=== PATIENT | male | born 1965 | race Caucasian/White ===

== ENCOUNTER 2018-05-30 13:45 | Emergency (ER) | payer OTHER ==
[2018-05-30 14:32] LABS: BILIRUBIN,URINE NEGATIVE (NEGATIVE); GLUCOSE, URINE (UA) NEGATIVE (NEGATIVE); KETONES,URINE (UA) NEGATIVE (NEGATIVE); LEUKOCYTE ESTERASE, URINE NEGATIVE (NEGATIVE); NITRITE,URINE NEGATIVE (NEGATIVE); OCCULT BLOOD,URINE NEGATIVE (NEGATIVE); PROTEIN,URINE NEGATIVE (NEGATIVE); UROBILINOGEN,URINE 0.2 (NORMAL) E.U./dL (NORMAL)
[2018-05-30 14:33] LABS: CLARITY,URINE CLEAR (CLEAR)
[2018-05-30 14:36] LABS: EOSINOPHILS % (AUTO) 0.1 %; HGB - HEMOGLOBIN 13.5 g/dL (14.0-18.0); LYMPHOCYTES # (AUTO) 1.3 10^3/uL (1.5-3.5); LYMPHOCYTES % (AUTO) 34.5 %; MEAN CORPUSCULAR HEMOGLOBIN 33.1 pg (27.0-31.0); MEAN CORPUSCULAR HGB CONC 34.3 g/dL (32.0-36.0); MEAN CORPUSCULAR VOLUME 96.4 fL (80.0-94.0); MEAN PLATELET VOLUME 6.8 fL (7.4-11.4); MONOCYTES # (AUTO) 0.6 10^3/uL (0.0-1.0); MONOCYTES % (AUTO) 15.1 %; NEUTROPHILS # (AUTO) 1.9 10^3/uL (1.5-6.6); NEUTROPHILS % (AUTO) 49.3 %; PLT - PLATELET COUNT 119 10^3/uL (130-450); RED BLOOD COUNT 4.09 10^6/uL (4.70-6.10); RED CELL DISTRIBUTION WIDTH 14.1 % (12.0-15.0); WHITE BLOOD COUNT 3.8 x10^3/uL (4.8-10.8)
--- NOTE | 2018-05-30 14:49 | ED Physician Documentation ---
History of Present Illness - Stated complaint Stated Complaint: BLOOD IN URINE - Chief complaint Chief Complaint: Abd Pain - History obtained from History obtained from: Patient, Friend - History of Present Illness Timing: How many weeks ago (1) - Additonal information Additional information: 52-year-old alcoholic male who over the past week has developed abdominal pain and vomiting has developed dark colored urine he went into see his doctor today and was found to have elevated liver functions and was asked to come to the hospital for evaluation. Review of Systems Constitutional: reports: Myalgias, Fatigue. denies: Fever Eyes: denies: Decreased vision Ears: denies: Ear pain Nose: denies: Rhinorrhea / runny nose, Congestion, Foreign Body Throat: denies: Sore throat Cardiac: denies: Chest pain / pressure, Palpitations, Pedal edema, Calf pain Respiratory: denies: Dyspnea, Cough GI: reports: Abdominal Pain, Nausea, Vomiting : reports: Hematuria. denies: Dysuria, Frequency Skin: denies: Rash Musculoskeletal: denies: Neck pain, Back pain, Extremity pain PD PAST MEDICAL HISTORY - Past Medical History Cardiovascular: Hypertension Endocrine/Autoimmune: Type 2 diabetes - Past Surgical History Past Surgical History: No - Present Medications Home Medications: Ambulatory Orders Medication Instructions Recorded Confirmed Lisinopril/Hydrochlorothiazide 1 tab 06/05/15 [Lisinopril-Hctz 20-25 mg Tab] Lorazepam [Ativan] 1 - 2 mg PO Q6HR PRN #20 tablet 06/05/15 Ondansetron Odt [Zofran] 4 mg TL Q6H PRN #10 tablet 06/05/15 LORazepam [Ativan] 1 - 2 mg PO Q6HR PRN #30 tablet 05/30/18 - Allergies Allergies/Adverse Reactions: Allergies Allergy/AdvReac Type Severity Reaction Status Date / Time No Known Drug Allergies Allergy Verified 05/30/18 14:08 - Social History Does the pt smoke?: No Smoking Status: Never smoker Does the pt drink ETOH?: Yes Does the pt have substance abuse?: No - Immunizations Immunizations are current?: Yes PD ED PE NORMAL - Vitals Vital signs reviewed: Yes (tachy and hypertensive) - General General: Alert and oriented X 3, Well developed/nourished, Other (Seems a little shaky and has scleral ictarus) - HEENT HEENT: Atraumatic, PERRL, EOMI - Neck Neck: Supple, no meningeal sign - Cardiac Cardiac: No murmur, Other (tachy to 120) - Respiratory Respiratory: No respiratory distress, Clear bilaterally - Abdomen Abdomen: Soft, Non tender, No organomegaly - Back Back: No CVA TTP, No spinal TTP - Derm Derm: Normal color, Warm and dry, No rash - Extremities Extremities: No deformity, No edema - Neuro Neuro: Alert and oriented X 3, 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, No motor deficit, No sensory de ficit, Normal speech Eye Opening: Spontaneous Motor: Obeys Commands Verbal: Oriented GCS Score: 15 - Psych Psych: Normal mood, Normal affect Results - Vitals Vitals: Vital Signs - 24 hr 05/30/18 05/30/18 14:05 16:40 Temperature 36.9 C Heart Rate 122 H 97 Respiratory 20 18 Rate Blood Pressure 138/99 H 130/90 H O2 Saturation 96 98 Oxygen O2 Source Room air - Labs Labs: Laboratory Tests 05/30/18 05/30/18 05/30/18 14:15 14:25 14:25 WBC 3.8 L RBC 4.09 L Hgb 13.5 L Hct 39.4 L MCV 96.4 H MCH 33.1 H MCHC 34.3 RDW 14.1 Plt Count 119 L MPV 6.8 L Neut # (Auto) 1.9 Lymph # (Auto) 1.3 L [place] # (Auto) 0.6 Eos # (Auto) 0.0 Baso # (Auto) 0.0 Absolute Nucleated RBC 0.00 Nucleated RBC % 0.0 Sodium 138 Potassium 3.5 Chloride 95 L Carbon Dioxide 27 Anion Gap 16.0 H BUN 5 L Creatinine 0.9 Estimated GFR (MDRD) 89 Glucose 137 H Calcium 9.1 Total Bilirubin 2.1 H AST 586 H ALT 284 H Alkaline Phosphatase 92 Total Protein 7.8 Albumin 4.5 Globulin 3.3 Albumin/Globulin Ratio 1.4 Lipase 94 H Urine Color YELLOW Urine Clarity CLEAR Urine pH 7.0 Ur Specific [place] <=1.005 Urine Protein NEGATIVE Urine Glucose (UA) NEGATIVE Urine Ketones NEGATIVE Urine Occult Blood NEGATIVE Urine Nitrite NEGATIVE Urine Bilirubin NEGATIVE Urine Urobilinogen 0.2 (NORMAL) Ur Leukocyte Esterase NEGATIVE Ur Microscopic Review NOT INDICATED Urine Culture Comments NOT INDICATED Ethyl Alcohol 05/30/18 14:25 WBC RBC Hgb Hct MCV MCH MCHC RDW Plt Count MPV Neut # (Auto) Lymph # (Auto) [place] # (Auto) Eos # (Auto) Baso # (Auto) Absolute Nucleated RBC Nucleated RBC % Sodium Potassium Chloride Carbon Dioxide Anion Gap BUN Creatinine Estimated GFR (MDRD) Glucose Calcium Total Bilirubin AST ALT Alkaline Phosphatase Total Protein Albumin Globulin Albumin/Globulin Ratio Lipase Urine Color Urine Clarity Urine pH Ur Specific [place] Urine Protein Urine Glucose (UA) Urine Ketones Urine Occult Blood Urine Nitrite Urine Bilirubin Urine Urobilinogen Ur Leukocyte Esterase Ur Microscopic Review Urine Culture Comments Ethyl Alcohol 353.9 Procedures - IVC sono (time) 1445 Bedside IVC sono: IVC measures (cm) (1.48), Euvolemia PD MEDICAL DECISION MAKING - ED course Complexity details: reviewed old records, reviewed results, re-evaluated patient, considered differential, d/w patient, d/w family ED course: 52-year-old alcoholic male with vomiting and abdominal pain is administered IV banana bag. He is euvolemic on interrogation the inferior vena cava. His blood work is reviewed and he has acute alcholic hepatitis with only mild elevation of the bili. He has ETOH of 353. He will need some help getting off of alcohol and the licensed clinical social worker is consulted in the case and is able offer resources. The patient is administered IV ativan. Departure - Departure Disposition: 01 Home, Self Care Clinical Impression: Elevated liver enzymes Alcohol intoxication Qualifiers: Complication of substance-induced condition: uncomplicated Qualified Code(s): F10.920 - Alcohol use, unspecified with intoxication, uncomplicated Condition: Stable Instructions: ED Withdrawal Alcohol, ED Cirrhosis Liver, ED Alcohol Intoxication Follow-Up: GREGORIO DYER MD [Primary Care Provider] - Prescriptions: LORazepam [Ativan] 1 - 2 mg PO Q6HR PRN #30 tablet PRN Reason: withdrawal symptoms
[2018-05-30] MEDS ORDERED: FOLIC ACID INJ 1 MG, THIAMINE INJ 100 MG, MAGNESIUM SULFATE 2 GM, MULTIVITAMIN 10 ML in... IV STA ×5 (14:50)
[2018-05-30 14:52] LABS: ALBUMIN 4.5 g/dL (3.2-5.5); ALBUMIN/GLOBULIN RATIO 1.4 (1.0-2.2); BILIRUBIN,TOTAL 2.1 mg/dL (0.2-1.0); CALCIUM 9.1 mg/dL (8.5-10.3); CREATININE 0.9 mg/dL (0.6-1.2); TOTAL PROTEIN 7.8 g/dL (6.7-8.2)
[2018-05-30 16:40] VITALS: BP 130/90
[2018-05-30] MEDS ORDERED: LORazepam 2 MG/ML VIAL IVP STA (16:40)
== END 2018-05-30 17:47 | disposition home or self-care (01) ==
LOC: ED 13:45
DX: R79.89 Other specified abnormal findings of blood chemistry (principal); K70.10 Alcoholic hepatitis without ascites; F10.129 Alcohol abuse with intoxication, unspecified; Y90.8 Blood alcohol level of 240 mg/100 ml or more; I10 Essential (primary) hypertension; E11.9 Type 2 diabetes mellitus without complications
CPT/HCPCS: 36415; 80053; 80320; 81003; 83690; 85025; 96374; 96375; 99283; J2060; J3411; 81001; 87086

== ENCOUNTER 2018-11-30 09:14 | Emergency (ER) | payer OTHER ==
[2018-11-30 09:39] VITALS: BP 129/96
== END 2018-11-30 10:26 | disposition left against medical advice (07) ==
LOC: ED 09:14
DX: Z53.21 Procedure and treatment not carried out due to patient leaving prior to being seen by health care provider (principal)
CPT/HCPCS: 93005

== ENCOUNTER 2019-07-12 15:04 | Outpatient (CLI) | payer OTHER | END 2019-07-12 15:05 | disposition critical access hospital (66) | LOC: EMS 15:04 | PROVIDERS: ATTEND Surgery | DX: Z72.89 Other problems related to lifestyle (principal) | CPT/HCPCS: A0425; A0429 ==

== ENCOUNTER 2019-07-12 15:17 | Emergency (ER) | payer OTHER ==
[2019-07-12] MEDS ORDERED: THIAMINE 100 MG TABLET PO STA (15:25)
--- NOTE | 2019-07-12 15:26 | ED Physician Documentation ---
History of Present Illness - Stated complaint Stated Complaint: HBD - History obtained from History obtained from: Patient, EMS - History of Present Illness Timing: Other (54-year-old gentleman presents by ambulance requesting help with alcohol withdrawal. He says he is withdrawing from alcohol, but police did a breathalyzer on scene that was 0.318 just a few minutes ago. He was in an inpatient detoxification facility and got out about 10 days ago. Says he stayed sober for about a week but has been on a mullen for the last 3 days. He admits to vague suicidal ideation without plan.) Review of Systems Ten Systems: 10 systems reviewed and negative Constitutional: denies: Fever, Chills Eyes: denies: Loss of vision, Decreased vision Ears: denies: Loss of hearing, Ear pain Nose: denies: Rhinorrhea / runny nose, Congestion PD PAST MEDICAL HISTORY - Past Medical History Cardiovascular: Hypertension Endocrine/Autoimmune: Type 2 diabetes - Past Surgical History Past Surgical History: No - Present Medications Home Medications: Ambulatory Orders Medication Instructions Recorded Confirmed Lisinopril/Hydrochlorothiazide 1 tab 06/05/15 [Lisinopril-Hctz 20-25 mg Tab] Lorazepam [Ativan] 1 - 2 mg PO Q6HR PRN #20 tablet 06/05/15 Ondansetron Odt [Zofran] 4 mg TL Q6H PRN #10 tablet 06/05/15 LORazepam [Ativan] 1 - 2 mg PO Q6HR PRN #30 tablet 05/30/18 - Allergies Allergies/Adverse Reactions: Allergies Allergy/AdvReac Type Severity Reaction Status Date / Time No Known Drug Allergies Allergy Verified 11/30/18 09:39 - Social History Does the pt smoke?: No Smoking Status: Never smoker Does the pt drink ETOH?: Yes Does the pt have substance abuse?: No - Immunizations Immunizations are current?: Yes PD ED PE NORMAL - Vitals Vital signs reviewed: Yes - General General: Alert and oriented X 3, Other (He is intoxicated but pleasant, follows commands, bloodshot eyes, slurred speech) - HEENT HEENT: PERRL - Neck Neck: Supple, no meningeal sign, No bony TTP - Cardiac Cardiac: RRR, No murmur - Respiratory Respiratory: No respiratory distress, Clear bilaterally - Abdomen Abdomen: Normal bowel sounds, Soft, Non tender - Back Back: No CVA TTP, No spinal TTP - Derm Derm: Normal color, Warm and dry - Extremities Extremities: No edema, No calf tenderness / cord - Neuro Neuro: Alert and oriented X 3, Normal speech Results - Vitals Vitals: Vital Signs - 24 hr 07/12/19 07/12/19 07/12/19 15:33 16:04 17:14 Temperature 36.9 C 36.5 C Heart Rate 85 83 88 Respiratory 16 16 16 Rate Blood Pressure 139/89 H 121/81 H 133/95 H O2 Saturation 98 98 97 Oxygen O2 Source Room air - Labs Labs: Laboratory Tests 07/12/19 07/12/19 07/12/19 15:38 15:38 16:20 WBC 6.0 RBC 4.66 L Hgb 14.6 Hct 41.4 L MCV 88.8 MCH 31.3 H MCHC 35.3 RDW 12.0 Plt Count 190 MPV 8.9 Neut # (Auto) 3.4 Lymph # (Auto) 1.5 [place] # (Auto) 0.9 Eos # (Auto) 0.1 Baso # (Auto) 0.0 Absolute Nucleated RBC 0.00 Nucleated RBC % 0.0 Sodium 137 Potassium 3.8 Chloride 96 L Carbon Dioxide 27 Anion Gap 14.0 H BUN 13 Creatinine 0.9 Estimated GFR (MDRD) 89 Glucose 111 H Calcium 8.9 Total Bilirubin 0.9 AST 48 H ALT 35 Alkaline Phosphatase 73 Total Protein 7.6 Albumin 4.5 Globulin 3.1 Albumin/Globulin Ratio 1.5 Lipase 73 H Urine Color YELLOW Urine Clarity CLEAR Urine pH 7.0 Ur Specific [place] <=1.005 Urine Protein NEGATIVE Urine Glucose (UA) NEGATIVE Urine Ketones NEGATIVE Urine Occult Blood NEGATIVE Urine Nitrite NEGATIVE Urine Bilirubin NEGATIVE Urine Urobilinogen 0.2 (NORMAL) Ur Leukocyte Esterase NEGATIVE Ur Microscopic Review NOT INDICATED Urine Culture Comments NOT INDICATED Salicylates < 6.0 Urine Opiates Screen NEGATIVE Ur Oxycodone Screen NEGATIVE Urine Methadone Screen NEGATIVE Ur Propoxyphene Screen NEGATIVE Acetaminophen < 10 L Ur Barbiturates Screen NEGATIVE Ur Tricyclics Screen NEGATIVE Ur Phencyclidine Scrn NEGATIVE Ur Amphetamine Screen NEGATIVE U Methamphetamines Scrn NEGATIVE U Benzodiazepines Scrn NEGATIVE Urine Cocaine Screen NEGATIVE U Cannabinoids Screen NEGATIVE Ethyl Alcohol 349.0 PD MEDICAL DECISION MAKING - ED course ED course: 54-year-old gentleman presents by ambulance requesting help with alcohol withdrawal, but he is not withdrawing. Initially was vacillating on whether he want to talk to social work or just be discharged and decided for the former. He understood that he arrived after the social insurance specialist had gone for the night and was willing to stay in the department pending evaluation in the morning, but e ventually ambulated out without notifying staff. Departure - Departure Disposition: ED [place] Clinical Impression: Alcohol intoxication Qualifiers: Complication of substance-induced condition: uncomplicated Qualified Code(s): F10.920 - Alcohol use, unspecified with intoxication, uncomplicated Condition: Stable
[2019-07-12 15:47] LABS: BASOPHILS % (AUTO) 0.7 %; EOSINOPHILS # (AUTO) 0.1 10^3/uL (0.0-0.7); EOSINOPHILS % (AUTO) 1.3 %; HGB - HEMOGLOBIN 14.6 g/dL (14.0-18.0); LYMPHOCYTES # (AUTO) 1.5 10^3/uL (1.5-3.5); LYMPHOCYTES % (AUTO) 25.7 %; MEAN CORPUSCULAR HEMOGLOBIN 31.3 pg (27.0-31.0); MEAN CORPUSCULAR HGB CONC 35.3 g/dL (32.0-36.0); MEAN CORPUSCULAR VOLUME 88.8 fL (80.0-94.0); MEAN PLATELET VOLUME 8.9 fL (7.4-11.4); MONOCYTES # (AUTO) 0.9 10^3/uL (0.0-1.0); MONOCYTES % (AUTO) 14.3 %; NEUTROPHILS # (AUTO) 3.4 10^3/uL (1.5-6.6); NEUTROPHILS % (AUTO) 57.8 %; PLT - PLATELET COUNT 190 10^3/uL (130-450); RED BLOOD COUNT 4.66 10^6/uL (4.70-6.10)
[2019-07-12 15:59] LABS: ACETAMINOPHEN < 10 ug/mL (10-30); ALBUMIN 4.5 g/dL (3.2-5.5); ALBUMIN/GLOBULIN RATIO 1.5 (1.0-2.2); ALKALINE PHOSPHATASE 73 IU/L (42-121); ALT ALANINE AMINOTRANSFERASE 35 IU/L (10-60); AST ASPARTATE AMINOTRANSFERASE 48 IU/L (10-42); BILIRUBIN,TOTAL 0.9 mg/dL (0.2-1.0); BUN - BLOOD UREA NITROGEN 13 mg/dL (6-20); CALCIUM 8.9 mg/dL (8.5-10.3); CARBON DIOXIDE - CO2 27 mmol/L (21-32); CHLORIDE 96 mmol/L (101-111); CREATININE 0.9 mg/dL (0.6-1.2); GLUCOSE 111 mg/dL (70-100); LIPASE 73 U/L (22-51); SALICYLATE < 6.0 mg/dL; SODIUM 137 mmol/L (135-145); TOTAL PROTEIN 7.6 g/dL (6.7-8.2)
[2019-07-12 16:24] LABS: MUDS CUTOFF CONCENTRATIONS CUTOFF CONC BELOW:
[2019-07-12 16:28] LABS: BILIRUBIN,URINE NEGATIVE (NEGATIVE); GLUCOSE, URINE (UA) NEGATIVE (NEGATIVE); KETONES,URINE (UA) NEGATIVE (NEGATIVE); LEUKOCYTE ESTERASE, URINE NEGATIVE (NEGATIVE); NITRITE,URINE NEGATIVE (NEGATIVE); OCCULT BLOOD,URINE NEGATIVE (NEGATIVE); PROTEIN,URINE NEGATIVE (NEGATIVE); UROBILINOGEN,URINE 0.2 (NORMAL) E.U./dL (NORMAL)
[2019-07-12 16:37] LABS: CLARITY,URINE CLEAR (CLEAR)
[2019-07-12 16:38] LABS: AMPHETAMINE SCREEN,URINE NEGATIVE (NEGATIVE); BENZODIAZEPINES SCREEN, URINE NEGATIVE (NEGATIVE); COCAINE SCREEN URINE NEGATIVE (NEGATIVE); METHADONE SCREEN, URINE NEGATIVE (NEGATIVE); METHAMPHETAMINES SCREEN, URINE NEGATIVE (NEGATIVE); OPIATE SCREEN, URINE NEGATIVE (NEGATIVE); OXYCODONE SCREEN, URINE NEGATIVE (NEGATIVE); PROPOXYPHENE SCREEN, URINE NEGATIVE (NEGATIVE); TRICYCLIC ANTIDEPRESSANT,URINE NEGATIVE (NEGATIVE)
[2019-07-12 17:14] VITALS: BP 133/95
== END 2019-07-12 18:58 | disposition left against medical advice (07) ==
LOC: EDUNIT# → ED 15:17
DX: F10.920 Alcohol use, unspecified with intoxication, uncomplicated (principal); I10 Essential (primary) hypertension; E11.9 Type 2 diabetes mellitus without complications
CPT/HCPCS: 36415; 80053; 80320; 80329; 81003; 83690; 85025; 99283; 99284; A9270; 80306; 80307; 81001; 87086

== ENCOUNTER 2019-07-30 16:50 | Emergency (ER) | payer OTHER ==
[2019-07-30 17:00] VITALS: BP 128/89
--- NOTE | 2019-07-30 17:03 | ED Physician Documentation ---
History of Present Illness - Stated complaint Stated Complaint: FIT FOR CONFINEMENT - Chief complaint Chief Complaint: General - History obtained from History obtained from: Patient, Police - History of Present Illness Timing: Today Pain level max: 0 Pain level now: 0 - Additonal information Additional information: 54-year-old male brought in by police today for evaluation. Unclear why he was brought to the emergency department. Appears to be secondary to alcohol use? Patient has no acute complaints. No injuries. He states that he is an alcoholic. He states that he has been detoxifying himself from alcohol recently. Review of Systems Ten Systems: 10 systems reviewed and negative Constitutional: denies: Fever, Chills Ears: denies: Ear pain Nose: denies: Rhinorrhea / runny nose, Congestion Throat: denies: Sore throat Cardiac: denies: Chest pain / pressure Respiratory: denies: Cough GI: denies: Abdominal Pain, Nausea, Vomiting, Diarrhea Skin: denies: Rash Musculoskeletal: denies: Neck pain, Back pain Neurologic: denies: Headache PD PAST MEDICAL HISTORY - Past Medical History Cardiovascular: Hypertension Respiratory: None Neuro: Peripheral neuropathy Endocrine/Autoimmune: Type 2 diabetes GI: GERD : None HEENT: None Psych: None Musculoskeletal: None Derm: None - Past Surgical History Past Surgical History: No Ortho: Other - Present Medications Home Medications: Ambulatory Orders Medication Instructions Recorded Confirmed Escitalopram [Lexapro] 10 mg PO DAILY 07/30/19 07/30/19 Metoprolol Tartrate 25 mg PO 07/30/19 07/30/19 lisinopriL [Zestril] 07/30/19 - Allergies Allergies/Adverse Reactions: Allergies Allergy/AdvReac Type Severity Reaction Status Date / Time No Known Drug Allergies Allergy Verified 11/30/18 09:39 - Social History Does the pt smoke?: No Smoking Status: Never smoker Does the pt drink ETOH?: Yes Does the pt have substance abuse?: No - Immunizations Immunizations are current?: Yes - POLST Patient has POLST: No PD ED PE NORMAL - Vitals Vital signs reviewed: Yes - General General: Alert and oriented X 3, No acute distress, Well developed/nourished - HEENT HEENT: PERRL, Moist mucous membranes - Neck Neck: Supple, no meningeal sign - Cardiac Cardiac: RRR, Strong equal pulses - Respiratory Respiratory: No respiratory distress, Clear bilaterally - Abdomen Abdomen: Soft, Non tender, Non distended - Derm Derm: Warm and dry - Extremities Extremities: Normal ROM s pain, No edema - Neuro Neuro: Alert and oriented X 3, 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 He states that he does not want to be in the emergency department and that he does not need to be here. I filled out the fit for confinement form stating that he refused any further evaluation. Recommend that he be [facility] at the [facility]. I attempted to leave a message with the nurse practitioner in charge of the [facility], but no call was answered. As the patient is refusing any further testing, we will allow him to be taken to [facility]. This does not mean that he will not have any medical issues when he is at [facility] and he should be monitored closely. This document was made in part using voice recognition software. While efforts are made to proofread this document, sound alike and grammatical errors may occur. Departure - Departure Disposition: 01 Home, Self Care Clinical Impression: Alcohol intoxication Qualifiers: Complication of substance-induced condition: uncomplicated Qualified Code(s): F10.920 - Alcohol use, unspecified with intoxication, uncomplicated Condition: Stable Instructions: ED Alcohol Intoxication Follow-Up: MATTY QUIGLEY ARNP [Physician No Access] - Tomorrow Comments: You have refused any care tonight. He should be evaluated by the nurse practitioner tomorrow. He should be placed into the alcohol withdrawal protocol as well
== END 2019-07-30 17:14 | disposition home or self-care (01) ==
LOC: EDUNIT# → ED 16:50
DX: F10.920 Alcohol use, unspecified with intoxication, uncomplicated (principal); Z53.20 Procedure and treatment not carried out because of patient's decision for unspecified reasons; I10 Essential (primary) hypertension; E11.42 Type 2 diabetes mellitus with diabetic polyneuropathy
CPT/HCPCS: 99282; 99284

== ENCOUNTER 2020-04-22 12:16 | Emergency (ER) | payer OTHER ==
--- NOTE | 2020-04-22 12:23 | ED Physician Documentation ---
History of Present Illness - Stated complaint Stated Complaint: fit for - History obtained from History obtained from: Patient, Police - Additonal information Additional information: 54-year-old gentleman with chronic alcohol use presents accompanied by 's deputy for a fit for confinement exam. Is unclear when his last drink was. He has been in custody for approximately 25 minutes and had a breathalyzer test that was at 0.321. His only complaint is left wrist pain. Review of Systems Constitutional: reports: Reviewed and negative Eyes: reports: Reviewed and negative Ears: reports: Reviewed and negative Nose: reports: Reviewed and negative Throat: reports: Reviewed and negative PD PAST MEDICAL HISTORY - Past Medical History Cardiovascular: Hypertension Respiratory: None Neuro: Peripheral neuropathy Endocrine/Autoimmune: Type 2 diabetes GI: GERD : None HEENT: None Psych: None Musculoskeletal: None Derm: None - Past Surgical History Past Surgical History: No Ortho: Other - Present Medications Home Medications: Ambulatory Orders Medication Instructions Recorded Confirmed Escitalopram [Lexapro] 10 mg PO DAILY 07/30/19 04/22/20 Metoprolol Tartrate 25 mg PO DAILY 07/30/19 04/22/20 lisinopriL [Zestril] 5 mg PO DAILY 07/30/19 - Allergies Allergies/Adverse Reactions: Allergies Allergy/AdvReac Type Severity Reaction Status Date / Time No Known Drug Allergies Allergy Verified 11/30/18 09:39 - Social History Does the pt smoke?: No Smoking Status: Never smoker Does the pt drink ETOH?: Yes Does the pt have substance abuse?: No - Immunizations Immunizations are current?: Yes - POLST Patient has POLST: No PD ED PE NORMAL - Vitals Vital signs reviewed: Yes - General General: Alert and oriented X 3, No acute distress, Other (Somnolent but easily arousable with significant nystagmus and bloodshot eyes and slurred speech.) - Neck Neck: No bony TTP - Respiratory Respiratory: No respiratory distress, Clear bilaterally - Abdomen Abdomen: Non tender - Back Back: No CVA TTP, No spinal TTP - Derm Derm: Normal color, Warm and dry - Extremities Extremities: Other (Mild tenderness of the dorsal wrist sparing the scaphoid on the left. No deformity or limited range of motion) - Neuro Neuro: Alert and oriented X 3, Normal speech - Psych Psych: Normal mood, Normal affect Results - Vitals Vitals: Vital Signs - 24 hr 04/22/20 04/22/20 04/22/20 12:17 12:30 13:16 Temperature 36.5 C Heart Rate 95 101 H 82 Respiratory 16 16 16 Rate Blood Pressure 136/90 H 125/68 112/80 O2 Saturation 97 99 96 Oxygen O2 Source Room air - Rads (name of study) L wrist XR Radiology: EMP read contemporaneously (NAD) PD MEDICAL DECISION MAKING - ED course Complexity details: reviewed old records (BAL above 0.3 looks "normal" for him) ED course: 54-year-old gentleman presents with alcohol intoxication with serger requesting fit for confinement exam. He was observed in the department for over an hour with clinical improvement in his mental status. His only other complaint was wrist pain this was x-rayed without pertinent positive findings. There is no snuffbox tenderness. - Consults Consults: Consulted (name) (LAURELM with Mirna Whiteheda at 1252) Departure - Departure Disposition: 01 Home, Self Care Clinical Impression: Alcohol intoxication Qualifiers: Complication of substance-induced condition: uncomplicated Qualified Code(s): F10.920 - Alcohol use, unspecified with intoxication, uncomplicated Left wrist sprain Qualifiers: Encounter type: initial encounter Qualified Code(s): S63.502A - Unspecified sprain of left wrist, initial encounter Condition: Stable Instructions: ED Alcohol Intoxication, ED Sprain Wrist Comments: [facility]. Return as needed.
--- NOTE | 2020-04-22 13:13 | XRAY Report ---
PROCEDURE: Wrist 4 View LT INDICATIONS: wrist inj TECHNIQUE: 4 views of the wrist were acquired. COMPARISON: None FINDINGS: Bones: No acute fractures or dislocations. No suspicious bony lesions. Scaphoid view: No scaphoid fracture visualized. Soft tissues: No suspicious soft tissue calcifications. IMPRESSION: No acute osseous abnormality. If there is clinical concern or persistent symptoms, additional imaging such as repeat radiographs or advanced imaging (e.g. CT, MRI) may be helpful for further evaluation. Reviewed by: Wes Maldonado MD on 04/22/2020 1:11 PM PST Approved by: Wes Maldonado MD on 04/22/2020 1:11 PM [facility] Station ID: [id number]
[2020-04-22 13:17] VITALS: BP 112/80
== END 2020-04-22 13:26 | disposition home or self-care (01) ==
LOC: ED 12:16
DX: F10.920 Alcohol use, unspecified with intoxication, uncomplicated (principal); Y90.8 Blood alcohol level of 240 mg/100 ml or more; S63.502A Unspecified sprain of left wrist, initial encounter; X58.XXXA Exposure to other specified factors, initial encounter; I10 Essential (primary) hypertension; E11.42 Type 2 diabetes mellitus with diabetic polyneuropathy
CPT/HCPCS: 99283

== ENCOUNTER 2020-05-27 15:27 | Outpatient (CLI) | payer OTHER | END 2020-05-27 15:28 | disposition critical access hospital (66) | LOC: EMS 15:27 | DX: Z04.89 Encounter for examination and observation for other specified reasons (principal) | CPT/HCPCS: A0425; A0429 ==

== ENCOUNTER 2020-05-27 15:47 | Emergency (ER) | payer OTHER ==
--- OUTSIDE RECORDS SUMMARY | 2020-05-27 15:54 | EXTERNAL MEDICAL SUMMARY RPT | Continuity of Care Document ---
:1965 Demographics Phone Unavailable Preferred Language Unknown Marital Status Unknown Nondenominational Affiliation Unknown Race Unknown Ethnic Group Unknown Author Organization [facility] Address [address] [place] [address] Phone Problems date description facility [id number] [facility] [id number] Social History date description facility [id number]
[2020-05-27] MEDS ORDERED: THIAMINE 100 MG TABLET PO STA (16:28)
--- NOTE | 2020-05-27 16:28 | ED Physician Documentation ---
PD HPI MHE - Stated complaint Stated Complaint: ETOH - Chief complaint Chief Complaint: MHE - History obtained from History obtained from: Patient, EMS - Additional information Additional information: 54-year-old gentleman presents by ambulance for alcohol intoxication. Reportedly was trying to check into a hotel and he was refused and then sort of threw himself on the floor without injury. His only complaint is that he was good to talk, he will quit drinking. Review of Systems Unable to obtain: Intoxicated PD PAST MEDICAL HISTORY - Past Medical History Cardiovascular: Hypertension Respiratory: None Neuro: Peripheral neuropathy Endocrine/Autoimmune: Type 2 diabetes GI: GERD : None HEENT: None Psych: None Musculoskeletal: None Derm: None - Past Surgical History Past Surgical History: No Ortho: Other - Present Medications Home Medications: Ambulatory Orders Medication Instructions Recorded Confirmed Escitalopram [Lexapro] 10 mg PO DAILY 07/30/19 04/22/20 Metoprolol Tartrate 25 mg PO DAILY 07/30/19 04/22/20 lisinopriL [Zestril] 5 mg PO DAILY 07/30/19 Famotidine [Pepcid] 20 mg PO DAILY #20 tablet 05/28/20 Ondansetron Odt [Zofran] 4 mg TL Q6H PRN #20 tablet 05/28/20 chlordiazePOXIDE [Librium] 25 mg PO Q6H PRN #25 05/28/20 - Allergies Allergies/Adverse Reactions: Allergies Allergy/AdvReac Type Severity Reaction Status Date / Time No Known Drug Allergies Allergy Verified 11/30/18 09:39 - Social History Does the pt smoke?: No Smoking Status: Never smoker Does the pt drink ETOH?: Yes Does the pt have substance abuse?: No - Immunizations Immunizations are current?: Yes - POLST Patient has POLST: No PD ED PE NORMAL - Vitals Vital signs reviewed: Yes - General General: Other (slow slurred speech, obviously intoxicated but cooperative and pleasant.) - HEENT HEENT: PERRL (bloodshot) - Neck Neck: Supple, no meningeal sign, No bony TTP - Cardiac Cardiac: RRR, No murmur - Respiratory Respiratory: No respiratory distress, Clear bilaterally - Abdomen Abdomen: Non tender - Back Back: No CVA TTP, No spinal TTP - Derm Derm: Normal color, Warm and dry - Extremities Extremities: No edema, No calf tenderness / cord - Neuro Neuro: Alert and oriented X 3, No motor deficit, No sensory deficit, Normal speech Results - Vitals Vitals: Vital Signs - 24 hr 05/27/20 05/28/20 05/28/20 15:55 03:10 10:55 Temperature 37.1 C 36.8 C Heart Rate 114 H 92 92 Respiratory 18 14 18 Rate Blood Pressure 107/95 H 119/79 146/92 H O2 Saturation 99 96 96 Oxygen O2 Source Room air - Labs Labs: Laboratory Tests 05/27/20 05/27/20 05/27/20 16:41 16:41 16:41 WBC 5.2 RBC 3.87 L Hgb 12.6 L Hct 34.7 L MCV 89.7 MCH 32.6 H MCHC 36.3 H RDW 11.3 L Plt Count 93 L MPV 8.8 Neut # (Auto) 3.2 Lymph # (Auto) 1.3 L [place] # (Auto) 0.6 Eos # (Auto) 0.0 Baso # (Auto) 0.0 Absolute Nucleated RBC 0.00 Nucleated RBC % 0.0 Sodium 137 Potassium 4.0 Chloride 102 Carbon Dioxide 24 Anion Gap 11.0 BUN 24 H Creatinine 1.5 H Estimated GFR (MDRD) 49 L Glucose 143 H Calcium 8.8 Total Bilirubin 0.8 AST 33 ALT 22 Alkaline Phosphatase 49 Total Protein 6.7 Albumin 4.2 Globulin 2.5 Albumin/Globulin Ratio 1.7 Lipase 100 H TSH 0.66 Urine Color Urine Clarity Urine pH Ur Specific [place] Urine Protein Urine Glucose (UA) Urine Ketones Urine Occult Blood Urine Nitrite Urine Bilirubin Urine Urobilinogen Ur Leukocyte Esterase Ur Microscopic Review Urine Culture Comments Nasal Adenovirus (PCR) Nasal B. parapertussis DNA (PCR) Nasal Coronavir 229E PCR Nasal Coronavir HKU1 PCR Nasal Coronavir NL63 PCR Nasal Coronavir OC43 PCR Nasal Enterovir/Rhinovir PCR Nasal Influenza B PCR Nasal Influenza A PCR Nasal Parainfluen 1 PCR Nasal Parainfluen 2 PCR Nasal Parainfluen 3 PCR Nasal Parainfluen 4 PCR Nasal RSV (PCR) Nasal B.pertussis DNA PCR Nasal C.pneumoniae (PCR) Cricket Human Metapneumo PCR Nasal M.pneumoniae (PCR) Nasal SARS-CoV-2 (PCR) Salicylates < 6.0 Urine Opiates Screen Ur Oxycodone Screen Urine Methadone Screen Ur Propoxyphene Screen Acetaminophen < 10 L Ur Barbiturates Screen Ur Tricyclics Screen Ur Phencyclidine Scrn Ur Amphetamine Screen U Methamphetamines Scrn U Benzodiazepines Scrn Urine Cocaine Screen U Cannabinoids Screen Ethyl Alcohol 456.7 05/27/20 05/28/20 05/28/20 16:49 07:07 08:08 WBC RBC Hgb Hct MCV MCH MCHC RDW Plt Count MPV Neut # (Auto) Lymph # (Auto) [place] # (Auto) Eos # (Auto) Baso # (Auto) Absolute Nucleated RBC Nucleated RBC % Sodium Potassium Chloride Carbon Dioxide Anion Gap BUN Creatinine Estimated GFR (MDRD) Glucose Calcium Total Bilirubin AST ALT Alkaline Phosphatase Total Protein Albumin Globulin Albumin/Globulin Ratio Lipase TSH Urine Color YELLOW Urine Clarity CLEAR Urine pH 5.0 Ur Specific [place] 1.020 Urine Protein NEGATIVE Urine Glucose (UA) NEGATIVE Urine Ketones NEGATIVE Urine Occult Blood NEGATIVE Urine Nitrite NEGATIVE Urine Bilirubin NEGATIVE Urine Urobilinogen 0.2 (NORMAL) Ur Leukocyte Esterase NEGATIVE Ur Microscopic Review NOT INDICATED Urine Culture Comments NOT INDICATED Nasal Adenovirus (PCR) NOT DETECTED Nasal B. parapertussis DNA (PCR) NOT DETECTED Nasal Coronavir 229E PCR NOT DETECTED Nasal Coronavir HKU1 PCR NOT DETECTED Nasal Coronavir NL63 PCR NOT DETECTED Nasal Coronavir OC43 PCR NOT DETECTED Nasal Enterovir/Rhinovir PCR NOT DETECTED Nasal Influenza B PCR NOT DETECTED Nasal Influenza A PCR NOT DETECTED Nasal Parainfluen 1 PCR NOT DETECTED Nasal Parainfluen 2 PCR NOT DETECTED Nasal Parainfluen 3 PCR NOT DETECTED Nasal Parainfluen 4 PCR NOT DETECTED Nasal RSV (PCR) NOT DETECTED Nasal B.pertussis DNA PCR NOT DETECTED Nasal C.pneumoniae (PCR) NOT DETECTED Cricket Human Metapneumo PCR NOT DETECTED Nasal M.pneumoniae (PCR) NOT DETECTED Nasal SARS-CoV-2 (PCR) NOT DETECTED Salicylates Urine Opiates Screen NEGATIVE Ur Oxycodone Screen NEGATIVE Urine Methadone Screen NEGATIVE Ur Propoxyphene Screen NEGATIVE Acetaminophen Ur Barbiturates Screen NEGATIVE Ur Tricyclics Screen NEGATIVE Ur Phencyclidine Scrn NEGATIVE Ur Amphetamine Screen NEGATIVE U Methamphetamines Scrn NEGATIVE U Benzodiazepines Scrn NEGATIVE Urine Cocaine Screen NEGATIVE U Cannabinoids Screen NEGATIVE Ethyl Alcohol 235.2 PD MEDICAL DECISION MAKING - ED course ED course: 54yo male presents quite intoxicated. Talking about wanting detox, but too drunk to make decisions. He will sober up in ED pending dispo. Departure - Departure Disposition: 01 Home, Self Care Clinical Impression: Alcohol intoxication, Altered mental status, Alcoholism Condition: Stable Instructions: ED Alcohol Intoxication Prescriptions: chlordiazePOXIDE [Librium] 25 mg PO Q6H PRN #25 PRN Reason: Alcohol Withdrawal Famotidine [Pepcid] 20 mg PO DAILY #20 tablet Ondansetron Odt [Zofran] 4 mg TL Q6H PRN #20 tablet PRN Reason: Nausea / Vomiting Comments: Stop alcohol use. Seek treatment to help through AA, support groups, alcohol detox programs, etc. Use Librium every 6 hours if needed for alcohol withdrawal. Try to taper down the amount and frequency over several days to a week. Ondansetron if needed for nausea. Famotidine acid reducing medicine daily for a couple of weeks as alcohol can irritate the stomach. Return as needed. Discharge Date/Time: 05/28/20 10:55
[2020-05-27 16:46] LABS: BASOPHILS % (AUTO) 0.6 %; EOSINOPHILS % (AUTO) 0.4 %; HCT - HEMATOCRIT 34.7 % (42.0-52.0); HGB - HEMOGLOBIN 12.6 g/dL (14.0-18.0); LYMPHOCYTES # (AUTO) 1.3 10^3/uL (1.5-3.5); LYMPHOCYTES % (AUTO) 25.8 %; MEAN CORPUSCULAR HEMOGLOBIN 32.6 pg (27.0-31.0); MEAN CORPUSCULAR HGB CONC 36.3 g/dL (32.0-36.0); MEAN CORPUSCULAR VOLUME 89.7 fL (80.0-94.0); MEAN PLATELET VOLUME 8.8 fL (7.4-11.4); MONOCYTES # (AUTO) 0.6 10^3/uL (0.0-1.0); MONOCYTES % (AUTO) 11.2 %; NEUTROPHILS # (AUTO) 3.2 10^3/uL (1.5-6.6); NEUTROPHILS % (AUTO) 61.8 %; PLT - PLATELET COUNT 93 10^3/uL (130-450); RED BLOOD COUNT 3.87 10^6/uL (4.70-6.10); RED CELL DISTRIBUTION WIDTH 11.3 % (12.0-15.0); WHITE BLOOD COUNT 5.2 x10^3/uL (4.8-10.8)
[2020-05-27 17:01] LABS: ACETAMINOPHEN < 10 ug/mL (10-30); ALBUMIN 4.2 g/dL (3.2-5.5); ALBUMIN/GLOBULIN RATIO 1.7 (1.0-2.2); ALKALINE PHOSPHATASE 49 IU/L (42-121); ALT ALANINE AMINOTRANSFERASE 22 IU/L (10-60); AST ASPARTATE AMINOTRANSFERASE 33 IU/L (10-42); BILIRUBIN,TOTAL 0.8 mg/dL (0.2-1.0); BUN - BLOOD UREA NITROGEN 24 mg/dL (6-20); CALCIUM 8.8 mg/dL (8.5-10.3); CARBON DIOXIDE - CO2 24 mmol/L (21-32); CHLORIDE 102 mmol/L (101-111); CREATININE 1.5 mg/dL (0.6-1.2); ETOH - ETHANOL 456.7 mg/dL; GFR - MDRD 49 (>89); GLUCOSE 143 mg/dL (70-100); LIPASE 100 U/L (22-51); SALICYLATE < 6.0 mg/dL; SODIUM 137 mmol/L (135-145); TOTAL PROTEIN 6.7 g/dL (6.7-8.2)
[2020-05-27 17:50] LABS: B. PARAPERTUSSIS- RESP PCR PAN NOT DETECTED; B. PERTUSSIS- RESP PCR PANEL NOT DETECTED; C. PNEUMONIAE- RESP PCR PANEL NOT DETECTED; CORONAVIRUS 229E-RESP PCR NOT DETECTED; CORONAVIRUS HKU1-RESP PCR NOT DETECTED; CORONAVIRUS NL63-RESP PCR NOT DETECTED; CORONAVIRUS OC43-RESP PCR NOT DETECTED; HUMAN METAPNEUMOVIRUS NOT DETECTED; INFLUENZA A- RESP PCR PANEL NOT DETECTED; INFLUENZA B - RESP PCR PANEL NOT DETECTED; PARAINFLUENZA VIRUS 1 NOT DETECTED; PARAINFLUENZA VIRUS 2 NOT DETECTED; PARAINFLUENZA VIRUS 3 NOT DETECTED; PARAINFLUENZA VIRUS 4 NOT DETECTED; RHINOVIRUS/ENTEROVIRUS NOT DETECTED; RSV- RESP PCR PANEL NOT DETECTED; SARS-CoV-2 -RESP PCR PANEL NOT DETECTED
[2020-05-27 17:51] LABS: M. PNEUMONIAE- RESP PCR PANEL NOT DETECTED
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
[2020-05-28] MEDS ORDERED: ONDANSETRON ODT 4 MG TABLET TL STA (06:17)
[2020-05-28 08:39] LABS: MUDS CUTOFF CONCENTRATIONS CUTOFF CONC BELOW:
[2020-05-28 08:48] LABS: BILIRUBIN,URINE NEGATIVE (NEGATIVE); GLUCOSE, URINE (UA) NEGATIVE (NEGATIVE); KETONES,URINE (UA) NEGATIVE (NEGATIVE); LEUKOCYTE ESTERASE, URINE NEGATIVE (NEGATIVE); NITRITE,URINE NEGATIVE (NEGATIVE); OCCULT BLOOD,URINE NEGATIVE (NEGATIVE); PROTEIN,URINE NEGATIVE (NEGATIVE); UROBILINOGEN,URINE 0.2 (NORMAL) E.U./dL (NORMAL)
[2020-05-28 08:49] LABS: CLARITY,URINE CLEAR (CLEAR)
[2020-05-28 09:00] LABS: AMPHETAMINE SCREEN,URINE NEGATIVE (NEGATIVE); BARBITURATE SCREEN,UR NEGATIVE (NEGATIVE); BENZODIAZEPINES SCREEN, URINE NEGATIVE (NEGATIVE); COCAINE SCREEN URINE NEGATIVE (NEGATIVE); METHADONE SCREEN, URINE NEGATIVE (NEGATIVE); METHAMPHETAMINES SCREEN, URINE NEGATIVE (NEGATIVE); OPIATE SCREEN, URINE NEGATIVE (NEGATIVE); OXYCODONE SCREEN, URINE NEGATIVE (NEGATIVE); PROPOXYPHENE SCREEN, URINE NEGATIVE (NEGATIVE); THC CANNABINOID SCREEN, URINE NEGATIVE (NEGATIVE); TRICYCLIC ANTIDEPRESSANT,URINE NEGATIVE (NEGATIVE)
[2020-05-28] MEDS ORDERED: ONDANSETRON 4 MG/2 ML VIAL IM STA (10:12)
[2020-05-28] MEDS ORDERED: diazePAM INJ 5 MG/ML SYRINGE IM STA (10:12)
[2020-05-28] MEDS ORDERED: chlordiazePOXIDE 25 MG CAPSULE PO STA (10:13)
--- NOTE | 2020-05-28 10:47 | ED Physician Documentation ---
ED Addendum - Addendum Addendum: 05/28/20 10:45The patient is awake and conversant. He is found to have a little bit of shakiness consistent with early withdrawal. His PA is still likely over 100. He states he had been drinking heavily recently but had been sober for a while before that. Does have history of alcoholism. He is offered detox or treatment facilities through social work but states he would rather continue with his AA sponsor and outpatient treatments. He was given referral information. He did accept off her of prescriptions for withdrawal and states Librium has worked well in the past. We will also prescribed Zofran and famotidine. He states he will stop drinking. Disposition: The patient is discharged home in stable condition Diagnoses: Acute alcohol intoxication 2. Altered mentation 3. History of alcoholism
[2020-05-28 11:18] VITALS: BP 146/92
== END 2020-05-28 10:55 | disposition home or self-care (01) ==
LOC: ED 15:47
DX: F10.229 Alcohol dependence with intoxication, unspecified (principal); Y90.8 Blood alcohol level of 240 mg/100 ml or more; R41.82 Altered mental status, unspecified; Z20.822 Contact with and (suspected) exposure to COVID-19; I10 Essential (primary) hypertension; E11.42 Type 2 diabetes mellitus with diabetic polyneuropathy
CPT/HCPCS: 0202U; 36415; 80053; 80306; 80307; 80320; 80329; 81003; 83690; 84443; 85025; 96372; 99281; 99284; A9270; Q0162; 81001; 87086

== ENCOUNTER 2020-12-10 19:36 | Outpatient (CLI) | payer OTHER, MEDICAID | END 2020-12-10 19:37 | disposition critical access hospital (66) | LOC: EMS 19:36 | DX: F10.129 Alcohol abuse with intoxication, unspecified (principal) | CPT/HCPCS: A0425; A0429 ==

== ENCOUNTER 2020-12-10 19:50 | Emergency (ER) | payer OTHER, MEDICAID ==
[2020-12-10] MEDS ORDERED: THIAMINE 100 MG TABLET PO STA (19:55)
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
[2020-12-10 20:04] LABS: BASOPHILS % (AUTO) 0.8 %; EOSINOPHILS # (AUTO) 0.1 10^3/uL (0.0-0.7); EOSINOPHILS % (AUTO) 1.8 %; HCT - HEMATOCRIT 37.7 % (42.0-52.0); HGB - HEMOGLOBIN 13.1 g/dL (14.0-18.0); LYMPHOCYTES # (AUTO) 1.3 10^3/uL (1.5-3.5); LYMPHOCYTES % (AUTO) 32.8 %; MEAN CORPUSCULAR HEMOGLOBIN 33.3 pg (27.0-31.0); MEAN CORPUSCULAR HGB CONC 34.7 g/dL (32.0-36.0); MEAN CORPUSCULAR VOLUME 95.9 fL (80.0-94.0); MEAN PLATELET VOLUME 8.6 fL (7.4-11.4); MONOCYTES # (AUTO) 0.7 10^3/uL (0.0-1.0); NEUTROPHILS # (AUTO) 1.9 10^3/uL (1.5-6.6); NEUTROPHILS % (AUTO) 46.1 %; PLT - PLATELET COUNT 111 10^3/uL (130-450); RED BLOOD COUNT 3.93 10^6/uL (4.70-6.10); RED CELL DISTRIBUTION WIDTH 10.9 % (12.0-15.0)
[2020-12-10 20:21] LABS: ACETAMINOPHEN < 10 ug/mL (10-30); ALBUMIN 4.3 g/dL (3.2-5.5); ALBUMIN/GLOBULIN RATIO 1.5 (1.0-2.2); ALKALINE PHOSPHATASE 53 IU/L (42-121); ALT ALANINE AMINOTRANSFERASE 44 IU/L (10-60); AST ASPARTATE AMINOTRANSFERASE 62 IU/L (10-42); BILIRUBIN,TOTAL 0.6 mg/dL (0.2-1.0); BUN - BLOOD UREA NITROGEN 19 mg/dL (6-20); CALCIUM 9.3 mg/dL (8.5-10.3); CARBON DIOXIDE - CO2 30 mmol/L (21-32); CHLORIDE 100 mmol/L (101-111); CREATININE 1.1 mg/dL (0.6-1.2); ETOH - ETHANOL 472.1 mg/dL; GFR - MDRD 70 (>89); GLUCOSE 148 mg/dL (70-100); LIPASE 104 U/L (22-51); SALICYLATE < 6.0 mg/dL; SODIUM 142 mmol/L (135-145); TOTAL PROTEIN 7.2 g/dL (6.7-8.2)
[2020-12-10 20:59] LABS: B. PARAPERTUSSIS- RESP PCR PAN NOT DETECTED; B. PERTUSSIS- RESP PCR PANEL NOT DETECTED; C. PNEUMONIAE- RESP PCR PANEL NOT DETECTED; CORONAVIRUS 229E-RESP PCR NOT DETECTED; CORONAVIRUS HKU1-RESP PCR NOT DETECTED; CORONAVIRUS NL63-RESP PCR NOT DETECTED; CORONAVIRUS OC43-RESP PCR NOT DETECTED; HUMAN METAPNEUMOVIRUS NOT DETECTED; INFLUENZA A- RESP PCR PANEL NOT DETECTED; INFLUENZA B - RESP PCR PANEL NOT DETECTED; M. PNEUMONIAE- RESP PCR PANEL NOT DETECTED; PARAINFLUENZA VIRUS 1 NOT DETECTED; PARAINFLUENZA VIRUS 2 NOT DETECTED; PARAINFLUENZA VIRUS 3 NOT DETECTED; PARAINFLUENZA VIRUS 4 NOT DETECTED; RHINOVIRUS/ENTEROVIRUS NOT DETECTED; RSV- RESP PCR PANEL NOT DETECTED; SARS-CoV-2 -RESP PCR PANEL NOT DETECTED
[2020-12-11 03:10] LABS: MUDS CUTOFF CONCENTRATIONS CUTOFF CONC BELOW:
[2020-12-11] MEDS ORDERED: chlordiazePOXIDE 25 MG CAPSULE PO STA (03:12)
[2020-12-11 03:13] LABS: BILIRUBIN,URINE NEGATIVE (NEGATIVE); GLUCOSE, URINE (UA) NEGATIVE (NEGATIVE); KETONES,URINE (UA) NEGATIVE (NEGATIVE); LEUKOCYTE ESTERASE, URINE NEGATIVE (NEGATIVE); NITRITE,URINE NEGATIVE (NEGATIVE); OCCULT BLOOD,URINE NEGATIVE (NEGATIVE); PROTEIN,URINE NEGATIVE (NEGATIVE); UROBILINOGEN,URINE 0.2 (NORMAL) E.U./dL (NORMAL)
[2020-12-11 03:15] LABS: CLARITY,URINE CLEAR (CLEAR)
[2020-12-11 03:24] LABS: AMPHETAMINE SCREEN,URINE NEGATIVE (NEGATIVE); BARBITURATE SCREEN,UR NEGATIVE (NEGATIVE); BENZODIAZEPINES SCREEN, URINE NEGATIVE (NEGATIVE); COCAINE SCREEN URINE NEGATIVE (NEGATIVE); METHADONE SCREEN, URINE NEGATIVE (NEGATIVE); METHAMPHETAMINES SCREEN, URINE NEGATIVE (NEGATIVE); OPIATE SCREEN, URINE POSITIVE (NEGATIVE); OXYCODONE SCREEN, URINE NEGATIVE (NEGATIVE); PROPOXYPHENE SCREEN, URINE NEGATIVE (NEGATIVE); THC CANNABINOID SCREEN, URINE NEGATIVE (NEGATIVE); TRICYCLIC ANTIDEPRESSANT,URINE NEGATIVE (NEGATIVE)
[2020-12-11] MEDS ORDERED: LORazepam 2 MG/ML VIAL IVP STA ×2 (06:26→14:08)
[2020-12-11] MEDS ORDERED: ONDANSETRON 4 MG/2 ML VIAL IVP STA (06:26)
[2020-12-11] MEDS ORDERED: MAGNESIUM SULFATE 1 GM/2 ML VIAL ONE (06:37)
[2020-12-11] MEDS ORDERED: THIAMINE 100 MG/1 ML 2 ML MDV ONE (06:37)
[2020-12-11] MEDS: THIAMINE INJ 100 MG, MAGNESIUM SULFATE 2 GM, MULTIVITAMIN 10 ML in SODIUM CHLORIDE 0.9%... IM STA ×2 (06:38→06:52)
[2020-12-11] MEDS ORDERED: THIAMINE INJ 100 MG, MAGNESIUM SULFATE 2 GM, MULTIVITAMIN 10 ML in SODIUM CHLORIDE 0.9%... IV STA (06:48)
--- NOTE | 2020-12-11 15:17 | ED Physician Documentation ---
ED Addendum - Addendum Addendum: 12/11/20 15:16 Patient was allowed to sober in the emergency department. He will be staying at the [facility]. He will be going to [place] tomorrow on a bus at 5:30 AM. He will follow up with his doctor for further care. Social work was consulted. He does not want to go to detox today. This document was made in part using voice recognition software. While efforts are made to proofread this document, sound alike and grammatical errors may occur. Departure - Departure Disposition: 01 Home, Self Care Clinical Impression: Alcohol intoxication Qualifiers: Complication of substance-induced condition: uncomplicated Qualified Code(s): F10.920 - Alcohol use, unspecified with intoxication, uncomplicated Condition: Good Instructions: ED Alcohol Intoxication Follow-Up: Your,doctor in 1 week [Other] Comments: Follow-up with your doctor for further care. Follow-up in [place] tomorrow morning as arranged by social work today.
[2020-12-11 15:38] VITALS: BP 130/80
== END 2020-12-11 15:37 | disposition home or self-care (01) ==
LOC: EDUNIT# → ED 19:50
DX: F10.129 Alcohol abuse with intoxication, unspecified (principal); E11.42 Type 2 diabetes mellitus with diabetic polyneuropathy; Z20.822 Contact with and (suspected) exposure to COVID-19
CPT/HCPCS: 0202U; 36415; 80053; 80306; 80307; 80320; 80329; 81003; 83690; 84443; 85025; 96365; 96375; 96376; 99281; 99284; A9270; J2060; J3411; 81001; 87086

== ENCOUNTER 2020-12-12 12:01 | Emergency (ER) | payer OTHER, MEDICAID ==
[2020-12-12 12:38] LABS: EOSINOPHILS # (AUTO) 0.1 10^3/uL (0.0-0.7); EOSINOPHILS % (AUTO) 2.6 %; HCT - HEMATOCRIT 37.1 % (42.0-52.0); HGB - HEMOGLOBIN 13.2 g/dL (14.0-18.0); LYMPHOCYTES # (AUTO) 1.1 10^3/uL (1.5-3.5); LYMPHOCYTES % (AUTO) 25.2 %; MEAN CORPUSCULAR HEMOGLOBIN 33.5 pg (27.0-31.0); MEAN CORPUSCULAR HGB CONC 35.6 g/dL (32.0-36.0); MEAN CORPUSCULAR VOLUME 94.2 fL (80.0-94.0); MEAN PLATELET VOLUME 8.6 fL (7.4-11.4); MONOCYTES # (AUTO) 0.6 10^3/uL (0.0-1.0); NEUTROPHILS # (AUTO) 2.4 10^3/uL (1.5-6.6); PLT - PLATELET COUNT 123 10^3/uL (130-450); RED BLOOD COUNT 3.94 10^6/uL (4.70-6.10); RED CELL DISTRIBUTION WIDTH 10.8 % (12.0-15.0); WHITE BLOOD COUNT 4.2 x10^3/uL (4.8-10.8)
[2020-12-12 13:01] LABS: ACETAMINOPHEN < 10 ug/mL (10-30); ALBUMIN 4.8 g/dL (3.2-5.5); ALBUMIN/GLOBULIN RATIO 1.6 (1.0-2.2); ALKALINE PHOSPHATASE 60 IU/L (42-121); ALT ALANINE AMINOTRANSFERASE 58 IU/L (10-60); AST ASPARTATE AMINOTRANSFERASE 109 IU/L (10-42); BUN - BLOOD UREA NITROGEN 12 mg/dL (6-20); CALCIUM 8.9 mg/dL (8.5-10.3); CARBON DIOXIDE - CO2 24 mmol/L (21-32); CHLORIDE 93 mmol/L (101-111); ETOH - ETHANOL 394.3 mg/dL; GFR - MDRD 78 (>89); GLUCOSE 100 mg/dL (70-100); LIPASE 70 U/L (22-51); POTASSIUM 4.3 mmol/L (3.5-5.0); SALICYLATE < 6.0 mg/dL; SODIUM 135 mmol/L (135-145); TOTAL PROTEIN 7.8 g/dL (6.7-8.2)
--- NOTE | 2020-12-12 15:33 | ED Physician Documentation ---
History of Present Illness - Stated complaint Stated Complaint: CONFUSION - Chief complaint Chief Complaint: General - Additonal information Additional information: 55-year-old male return to the emergency department requesting help with housing and alcohol abuse. Seen in this emergency department initially on the and discharged yesterday to [facility]. At the time of his initial presentation 2 days ago he was quite intoxicated with a very elevated alcohol level after a long period of time of metabolism here in the emergency department he had clinically sober. He declined to detox at that time and was sent to [facility]. The plan was for him to take a bus off the [place] so that he could get [place] housing in [facility]. He reports that he has been drinking but does not know the last time of last drink. He is very interested in housing but less interested in detox at this time though if detox will prevent him from being homeless he may consider that. Review of Systems Unable to obtain: Intoxicated PD PAST MEDICAL HISTORY - Past Medical History Cardiovascular: Hypertension Respiratory: None Neuro: Peripheral neuropathy Endocrine/Autoimmune: Type 2 diabetes GI: GERD : None HEENT: None Psych: None Musculoskeletal: None Derm: None - Past Surgical History Past Surgical History: No Ortho: Other - Present Medications Home Medications: Ambulatory Orders Medication Instructions Recorded Confirmed Escitalopram [Lexapro] 10 mg PO DAILY 07/30/19 04/22/20 Metoprolol Tartrate 25 mg PO DAILY 07/30/19 04/22/20 lisinopriL [Zestril] 5 mg PO DAILY 07/30/19 Famotidine [Pepcid] 20 mg PO DAILY #20 tablet 05/28/20 Ondansetron Odt [Zofran] 4 mg TL Q6H PRN #20 tablet 05/28/20 chlordiazePOXIDE [Librium] 25 mg PO Q6H PRN #25 05/28/20 - Allergies Allergies/Adverse Reactions: Allergies Allergy/AdvReac Type Severity Reaction Status Date / Time No Known Drug Allergies Allergy Verified 12/12/20 12:07 - Social History Does the pt smoke?: No Smoking Status: Never smoker Does the pt drink ETOH?: Yes Does the pt have substance abuse?: No - Immunizations Immunizations are current?: Yes - POLST Patient has POLST: No PD ED PE EXPANDED - General General: Alert, No acute distress - Neck Neck: Supple w/out meningeal sx - Cardiac Cardiac: Regular Rate, Radial strong equal, Pedal strong equal, Cap refill < 2 sec - Respiratory Respiratory: Clear to ausultation sajan. No: Distress, Labored - Abdomen Abdomen: Normal Bowel sounds. No: Tender to palpation - Derm Derm: Normal color, Warm and dry. No: Rash - Extremities Extremities: Normal. No: Deformity, Tenderness - Neuro Neuro: Alert and Oriented X 3, CNII-XII intact, Normal gait - GCS Eye Opening: Spontaneous Motor: Obeys Commands Verbal: Oriented Total: 15 Results - Vitals Vitals: Vital Signs - 24 hr 12/12/20 12/12/20 12/12/20 12:07 16:21 19:10 Temperature 36.5 C 36.1 C L Heart Rate 100 68 85 Respiratory 16 16 18 Rate Blood Pressure 110/83 H 126/84 H 130/76 O2 Saturation 97 98 99 Oxygen O2 Source Room air - Labs Labs: Laboratory Tests 12/12/20 12/12/20 12/12/20 12:30 12:30 12:30 WBC 4.2 L RBC 3.94 L Hgb 13.2 L Hct 37.1 L MCV 94.2 H MCH 33.5 H MCHC 35.6 RDW 10.8 L Plt Count 123 L MPV 8.6 Neut # (Auto) 2.4 Lymph # (Auto) 1.1 L [place] # (Auto) 0.6 Eos # (Auto) 0.1 Baso # (Auto) 0.0 Absolute Nucleated RBC 0.00 Nucleated RBC % 0.0 Sodium 135 Potassium 4.3 Chloride 93 L Carbon Dioxide 24 Anion Gap 18.0 H BUN 12 Creatinine 1.0 Estimated GFR (MDRD) 78 L Glucose 100 Calcium 8.9 Total Bilirubin 1.0 AST 109 H ALT 58 Alkaline Phosphatase 60 Total Protein 7.8 Albumin 4.8 Globulin 3.0 Albumin/Globulin Ratio 1.6 Lipase 70 H TSH 1.44 Urine Color Urine Clarity Urine pH Ur Specific [place] Urine Protein Urine Glucose (UA) Urine Ketones Urine Occult Blood Urine Nitrite Urine Bilirubin Urine Urobilinogen Ur Leukocyte Esterase Ur Microscopic Review Urine Culture Comments Nasal Adenovirus (PCR) Nasal B. parapertussis DNA (PCR) Nasal Coronavir 229E PCR Nasal Coronavir HKU1 PCR Nasal Coronavir NL63 PCR Nasal Coronavir OC43 PCR Nasal Enterovir/Rhinovir PCR Nasal Influenza B PCR Nasal Influenza A PCR Nasal Parainfluen 1 PCR Nasal Parainfluen 2 PCR Nasal Parainfluen 3 PCR Nasal Parainfluen 4 PCR Nasal RSV (PCR) Nasal B.pertussis DNA PCR Nasal C.pneumoniae (PCR) Cricket Human Metapneumo PCR Nasal M.pneumoniae (PCR) Nasal SARS-CoV-2 (PCR) Salicylates < 6.0 Urine Opiates Screen Ur Oxycodone Screen Urine Methadone Screen Ur Propoxyphene Screen Acetaminophen < 10 L Ur Barbiturates Screen Ur Tricyclics Screen Ur Phencyclidine Scrn Ur Amphetamine Screen U Methamphetamines Scrn U Benzodiazepines Scrn Urine Cocaine Screen U Cannabinoids Screen Ethyl Alcohol 394.3 12/12/20 12/12/20 16:00 16:06 WBC RBC Hgb Hct MCV MCH MCHC RDW Plt Count MPV Neut # (Auto) Lymph # (Auto) [place] # (Auto) Eos # (Auto) Baso # (Auto) Absolute Nucleated RBC Nucleated RBC % Sodium Potassium Chloride Carbon Dioxide Anion Gap BUN Creatinine Estimated GFR (MDRD) Glucose Calcium Total Bilirubin AST ALT Alkaline Phosphatase Total Protein Albumin Globulin Albumin/Globulin Ratio Lipase TSH Urine Color YELLOW Urine Clarity CLEAR Urine pH 6.5 Ur Specific [place] <=1.005 Urine Protein NEGATIVE Urine Glucose (UA) NEGATIVE Urine Ketones TRACE Urine Occult Blood TRACE-LYSE Urine Nitrite NEGATIVE Urine Bilirubin NEGATIVE Urine Urobilinogen 0.2 (NORMAL) Ur Leukocyte Esterase NEGATIVE Ur Microscopic Review NOT INDICATED Urine Culture Comments NOT INDICATED Nasal Adenovirus (PCR) NOT DETECTED Nasal B. parapertussis DNA (PCR) NOT DETECTED Nasal Coronavir 229E PCR NOT DETECTED Nasal Coronavir HKU1 PCR NOT DETECTED Nasal Coronavir NL63 PCR NOT DETECTED Nasal Coronavir OC43 PCR NOT DETECTED Nasal Enterovir/Rhinovir PCR NOT DETECTED Nasal Influenza B PCR NOT DETECTED Nasal Influenza A PCR NOT DETECTED Nasal Parainfluen 1 PCR NOT DETECTED Nasal Parainfluen 2 PCR NOT DETECTED Nasal Parainfluen 3 PCR NOT DETECTED Nasal Parainfluen 4 PCR NOT DETECTED Nasal RSV (PCR) NOT DETECTED Nasal B.pertussis DNA PCR NOT DETECTED Nasal C.pneumoniae (PCR) NOT DETECTED [place] Human Metapneumo PCR NOT DETECTED Nasal M.pneumoniae (PCR) NOT DETECTED Nasal SARS-CoV-2 (PCR) NOT DETECTED Salicylates Urine Opiates Screen NEGATIVE Ur Oxycodone Screen NEGATIVE Urine Methadone Screen NEGATIVE Ur Propoxyphene Screen NEGATIVE Acetaminophen Ur Barbiturates Screen NEGATIVE Ur Tricyclics Screen NEGATIVE Ur Phencyclidine Scrn NEGATIVE Ur Amphetamine Screen NEGATIVE U Methamphetamines Scrn NEGATIVE U Benzodiazepines Scrn POSITIVE H Urine Cocaine Screen NEGATIVE U Cannabinoids Screen NEGATIVE Ethyl Alcohol PD MEDICAL DECISION MAKING - ED course Complexity details: reviewed results, re-evaluated patient, d/w patient ED course: 55-year-old male who has a history of alcohol abuse returns to the emergency department for similar and it and could not go to detox. Patient admits to this provider that he is mostly interested in obtaining housing but when advised that the ER could not provide housing he then waffles and states he would like to go to detox. Unfortunately the patient is not sober enough to follow-up with detox as his EMMA needs to be less than 200. He will require significant amount of time to metabolize. Once metabolized he will be given the phone numbers to call detox. In the short-term he will remain in the emergency department. If at any point he wishes to leave he is sober enough to leave on his own accord. Baseline alcohol levels are typically in the high 300s and 400s and not markedly different today. While here in the emergency department he will be monitored closely to observe for signs of alcohol withdrawal and appropriately medicated with Librium or Ativan. 2030:I have reevaluated the patient. He is resting comfortably. No signs of tremor or alcohol withdrawal. He reiterates to this provider that his desire is to enter detox in the morning. A repeat blood alcohol will be ordered in the a.m. and patient is aware that it his his responsibility to call to see if detox beds are available. If they are not he will be discharged from the emergency department. He understands that we are not able to provide housing for him. 2100: Patient will be signed out to my nighttime colleague Dr. Costa. Departure - Departure Clinical Impression: Alcohol abuse
[2020-12-12 16:12] LABS: MUDS CUTOFF CONCENTRATIONS CUTOFF CONC BELOW:
[2020-12-12 16:14] LABS: BILIRUBIN,URINE NEGATIVE (NEGATIVE); GLUCOSE, URINE (UA) NEGATIVE (NEGATIVE); KETONES,URINE (UA) TRACE mg/dL (NEGATIVE); LEUKOCYTE ESTERASE, URINE NEGATIVE (NEGATIVE); NITRITE,URINE NEGATIVE (NEGATIVE); OCCULT BLOOD,URINE TRACE-LYSE (NEGATIVE); PH,URINE 6.5 PH (5.0-7.5); PROTEIN,URINE NEGATIVE (NEGATIVE); UROBILINOGEN,URINE 0.2 (NORMAL) E.U./dL (NORMAL)
[2020-12-12 16:17] LABS: CLARITY,URINE CLEAR (CLEAR)
[2020-12-12 16:26] LABS: AMPHETAMINE SCREEN,URINE NEGATIVE (NEGATIVE); BARBITURATE SCREEN,UR NEGATIVE (NEGATIVE); BENZODIAZEPINES SCREEN, URINE POSITIVE (NEGATIVE); COCAINE SCREEN URINE NEGATIVE (NEGATIVE); METHADONE SCREEN, URINE NEGATIVE (NEGATIVE); METHAMPHETAMINES SCREEN, URINE NEGATIVE (NEGATIVE); OPIATE SCREEN, URINE NEGATIVE (NEGATIVE); OXYCODONE SCREEN, URINE NEGATIVE (NEGATIVE); PROPOXYPHENE SCREEN, URINE NEGATIVE (NEGATIVE); THC CANNABINOID SCREEN, URINE NEGATIVE (NEGATIVE); TRICYCLIC ANTIDEPRESSANT,URINE NEGATIVE (NEGATIVE)
[2020-12-12 17:12] LABS: B. PARAPERTUSSIS- RESP PCR PAN NOT DETECTED; B. PERTUSSIS- RESP PCR PANEL NOT DETECTED; C. PNEUMONIAE- RESP PCR PANEL NOT DETECTED; CORONAVIRUS 229E-RESP PCR NOT DETECTED; CORONAVIRUS HKU1-RESP PCR NOT DETECTED; CORONAVIRUS NL63-RESP PCR NOT DETECTED; CORONAVIRUS OC43-RESP PCR NOT DETECTED; HUMAN METAPNEUMOVIRUS NOT DETECTED; INFLUENZA A- RESP PCR PANEL NOT DETECTED; INFLUENZA B - RESP PCR PANEL NOT DETECTED; M. PNEUMONIAE- RESP PCR PANEL NOT DETECTED; PARAINFLUENZA VIRUS 1 NOT DETECTED; PARAINFLUENZA VIRUS 2 NOT DETECTED; PARAINFLUENZA VIRUS 3 NOT DETECTED; PARAINFLUENZA VIRUS 4 NOT DETECTED; RHINOVIRUS/ENTEROVIRUS NOT DETECTED; RSV- RESP PCR PANEL NOT DETECTED; SARS-CoV-2 -RESP PCR PANEL NOT DETECTED
[2020-12-12] MEDS ORDERED: FAMOTIDINE 20 MG/2 ML VIAL IVP STA (23:03)
[2020-12-12] MEDS ORDERED: PHENobarbital 65 MG/ML VIAL IV STA (23:03)
[2020-12-12] MEDS ORDERED: SODIUM CHLORIDE 0.9% 1,000 ML IV STA (23:03)
--- NOTE | 2020-12-12 23:06 | ED Physician Documentation ---
ED Addendum - Addendum Addendum: 12/12/20 23:04 The patient had a repeat blood alcohol that was comparable to his first 112 hours ago. He had had a continued elevated blood alcohol on his prior visit as well. I would suspect he is still drinking well in the ER. He has his backpack with him and I asked him if he had anything in there and he denied it. I told him that I would need to see what inside in order to be able to continue evaluating for detox. He then confessed that there was alcohol in their. I asked him to turn it over to me so that we can continue treatment with medications. I reassured him he would not be allowed to have any withdrawal symptoms and we would treat him and medicate him appropriately as that was his big concern. He handed over than the bottle of vodka that was half empty and handed it to me willingly excepting that I would medicate him appropriately to prevent withdrawal.
[2020-12-13] MEDS ORDERED: DROPERIDOL 5 MG/2 ML VIAL IVP STA (03:56)
[2020-12-13] MEDS ORDERED: PHENobarbital 65 MG/ML VIAL IV STA (03:56)
[2020-12-13] MEDS ORDERED: SODIUM CHLORIDE 0.9% 1,000 ML IV STA (03:56)
--- NOTE | 2020-12-13 12:07 | ED Physician Documentation ---
ED Addendum - Addendum Addendum: 12/13/20 12:06 Patient had remained in the emergency department overnight. As he was not metabolizing alcohol as quickly as we would have thought his bags were ultimately searched and he was found to be in possession of alcohol. He was seen by our social media community manager this morning who had secured him a detox bed. However patient has instead decided to go to a [facility] in [place] and is declining detox at this time. He will be discharged. Return precautions for concerns of withdrawal were discussed.
[2020-12-13 12:35] VITALS: BP 153/95
== END 2020-12-13 12:31 | disposition home or self-care (01) ==
LOC: ED 12:01
DX: F10.129 Alcohol abuse with intoxication, unspecified (principal); Y90.8 Blood alcohol level of 240 mg/100 ml or more; Z20.822 Contact with and (suspected) exposure to COVID-19; I10 Essential (primary) hypertension; E11.42 Type 2 diabetes mellitus with diabetic polyneuropathy
CPT/HCPCS: 0202U; 36415; 80053; 80306; 80307; 80320; 80329; 81003; 83690; 84443; 85025; 96365; 96366; 96375; 99283; 99284; 81001; 87086

== ENCOUNTER 2021-09-02 11:12 | Outpatient (CLI) | payer OTHER, MEDICAID | END 2021-09-02 11:13 | disposition critical access hospital (66) | LOC: EMS 11:12 | DX: R45.851 Suicidal ideations (principal); Z72.89 Other problems related to lifestyle | CPT/HCPCS: A0425; A0429 ==

== ENCOUNTER 2021-09-02 11:32 | Emergency (ER) | payer OTHER, MEDICAID ==
[2021-09-02 11:43] VITALS: BP 121/77
--- NOTE | 2021-09-02 12:54 | ED Physician Documentation ---
History of Present Illness - Stated complaint Stated Complaint: ETOH/SI - Chief complaint Chief Complaint: MHE - History obtained from History obtained from: Patient - History of Present Illness Timing: Prior to arrival - Additonal information Additional information: 56-year-old male presents by EMS for "emotional exhaustion". Patient was found laying down outside of the court house intoxicated. He stated that he was supposed to have a court date to date but he could not do it. He asked EMS for a ride, however they said that they cannot do that for him. Patient then stated that he did not feel well and he wanted to be taken to the emergency department. On arrival the patient denied complaints. Denied wanting to harm himself, denied homicidal ideations, hallucinations, other complaints at this time. Review of Systems Unable to obtain: Intoxicated, Uncooperative Psychiatric: reports: Other ("emotional exhaustion") PD PAST MEDICAL HISTORY - Past Medical History Past Medical History: Yes Cardiovascular: Hypertension Respiratory: None Neuro: Peripheral neuropathy Endocrine/Autoimmune: Type 2 diabetes GI: GERD : None HEENT: None Psych: None Musculoskeletal: None Derm: None - Past Surgical History Past Surgical History: No Ortho: Other - Present Medications Home Medications: Ambulatory Orders Medication Instructions Recorded Confirmed Escitalopram [Lexapro] 10 mg PO DAILY 07/30/19 12/12/20 Metoprolol Tartrate 25 mg PO DAILY 07/30/19 12/12/20 lisinopriL [Zestril] 5 mg PO DAILY 07/30/19 12/12/20 Famotidine [Pepcid] 20 mg PO DAILY #20 tablet 05/28/20 Ondansetron Odt [Zofran] 4 mg TL Q6H PRN #20 tablet 05/28/20 chlordiazePOXIDE [Librium] 25 mg PO Q6H PRN #25 05/28/20 12/12/20 Ondansetron Odt [Zofran] 4 mg TL Q6H PRN #15 tablet 12/13/20 PHENobarbitaL [Phenobarbital] 30 mg PO BID 2 Days #8 tablet 12/13/20 - Allergies Allergies/Adverse Reactions: Allergies Allergy/AdvReac Type Severity Reaction Status Date / Time No Known Drug Allergies Allergy Verified 12/12/20 12:07 - Social History Does the pt smoke?: No Smoking Status: Never smoker Does the pt drink ETOH?: Yes Does the pt have substance abuse?: No - Immunizations Immunizations are current?: Yes - POLST Patient has POLST: No PD ED PE NORMAL - General General: Alert and oriented X 3, No acute distress, Well developed/nourished, Other (Intoxicated) - HEENT HEENT: Atraumatic, PERRL, EOMI, Ears normal, Moist mucous membranes - Neck Neck: Supple, no meningeal sign, No JVD - Cardiac Cardiac: RRR, No gallop - Respiratory Respiratory: No respiratory distress, Clear bilaterally - Abdomen Abdomen: Soft, Non tender, Non distended - Male Male : Deferred - Back Back: No CVA TTP, No spinal TTP - Derm Derm: Normal color, Warm and dry, No rash - Extremities Extremities: No deformity - Neuro Neuro: Alert and oriented X 3, enamel pulverizer 2-12 intact, No motor deficit, No sensory deficit - Psych Psych: Normal mood, Normal affect - Free text exam Free text exam: Falls asleep repeatedly after speaking to me Results - Vitals Vitals: Vital Signs - 24 hr 09/02/21 11:36 Temperature 36.9 C Heart Rate 79 Respiratory 16 Rate Blood Pressure 121/77 O2 Saturation 99 Oxygen O2 Source Room air PD MEDICAL DECISION MAKING - ED course Complexity details: reviewed old records, re-evaluated patient ED course: Patient presenting for nonemergent complaint. Denies suicidal or homicidal ideations. Patient is obviously intoxicated. Will allow to sober up and then will discharge home with alcohol cessation resources. Nursing is informed of plan. Patient hemodynamically stable, clinically sober. Discharged in stable condition Departure - Departure Disposition: 01 Home, Self Care Clinical Impression: Substance abuse Condition: Good Instructions: Alcoholism Part Solution, Alcoholism Get Help, Addiction Get Help Discharge Date/Time: 09/02/21 14:37
== END 2021-09-02 14:37 | disposition home or self-care (01) ==
LOC: EDUNIT# → ED 11:32
DX: F10.129 Alcohol abuse with intoxication, unspecified (principal)
CPT/HCPCS: 99281; 99282

== ENCOUNTER 2022-10-12 08:00 | Outpatient (CLI) | payer OTHER ==
[2022-10-12 21:41] LABS: BASOPHILS % (AUTO) 0.6 %; EOSINOPHILS # (AUTO) 0.3 10^3/uL (0.0-0.7); HCT - HEMATOCRIT 37.6 % (42.0-52.0); LYMPHOCYTES # (AUTO) 1.8 10^3/uL (1.5-3.5); LYMPHOCYTES % (AUTO) 26.4 %; MEAN CORPUSCULAR HEMOGLOBIN 31.9 pg (27.0-31.0); MEAN CORPUSCULAR HGB CONC 34.6 g/dL (32.0-36.0); MEAN CORPUSCULAR VOLUME 92.4 fL (80.0-94.0); MEAN PLATELET VOLUME 11.2 fL (7.4-11.4); MONOCYTES # (AUTO) 1.1 10^3/uL (0.0-1.0); MONOCYTES % (AUTO) 15.9 %; NEUTROPHILS # (AUTO) 3.6 10^3/uL (1.5-6.6); NEUTROPHILS % (AUTO) 52.8 %; PLT - PLATELET COUNT 165 10^3/uL (130-450); RED BLOOD COUNT 4.07 10^6/uL (4.70-6.10); RED CELL DISTRIBUTION WIDTH 11.5 % (12.0-15.0); WHITE BLOOD COUNT 6.8 x10^3/uL (4.8-10.8)
[2022-10-12 22:23] LABS: ALBUMIN/GLOBULIN RATIO 1.7 (1.0-2.2); BILIRUBIN,TOTAL 0.6 mg/dL (0.2-1.0); CREATININE 1.2 mg/dL (0.6-1.2); POTASSIUM 4.1 mmol/L (3.5-5.0); TOTAL PROTEIN 6.3 g/dL (6.7-8.2)
== END 2022-10-12 23:59 | disposition home or self-care (01) ==
LOC: LAB.R 08:00
PROVIDERS: ATTEND Registered Nurse
DX: Z13.228 Encounter for screening for other metabolic disorders (principal); R79.9 Abnormal finding of blood chemistry, unspecified
CPT/HCPCS: 80053; 85025

== ENCOUNTER 2022-10-16 10:40 | Outpatient (CLI) | payer OTHER ==
[2022-10-16 10:47] LABS: BASOPHILS % (AUTO) 0.6 %; EOSINOPHILS # (AUTO) 0.5 10^3/uL (0.0-0.7); EOSINOPHILS % (AUTO) 6.7 %; HCT - HEMATOCRIT 39.3 % (42.0-52.0); HGB - HEMOGLOBIN 13.4 g/dL (14.0-18.0); LYMPHOCYTES # (AUTO) 1.7 10^3/uL (1.5-3.5); LYMPHOCYTES % (AUTO) 25.8 %; MEAN CORPUSCULAR HEMOGLOBIN 31.3 pg (27.0-31.0); MEAN CORPUSCULAR HGB CONC 34.1 g/dL (32.0-36.0); MEAN CORPUSCULAR VOLUME 91.8 fL (80.0-94.0); MEAN PLATELET VOLUME 10.5 fL (7.4-11.4); MONOCYTES % (AUTO) 15.4 %; NEUTROPHILS # (AUTO) 3.4 10^3/uL (1.5-6.6); NEUTROPHILS % (AUTO) 51.2 %; PLT - PLATELET COUNT 177 10^3/uL (130-450); RED BLOOD COUNT 4.28 10^6/uL (4.70-6.10); RED CELL DISTRIBUTION WIDTH 11.4 % (12.0-15.0); WHITE BLOOD COUNT 6.7 x10^3/uL (4.8-10.8)
== END 2022-10-16 10:41 | disposition home or self-care (01) ==
LOC: LAB.R 10:40
PROVIDERS: ATTEND Registered Nurse
DX: Z01.89 Encounter for other specified special examinations (principal)
CPT/HCPCS: 85025